=== PATIENT | male | born 1955 | race Asian ===

== ENCOUNTER 2019-02-23 07:08 | Day surgery (SDC) | payer OTHER ==
[~2019-02-23] VITALS: Ht 160 cm; Wt 63.9 kg
[~2019-02-23 07:08] MED LIST: SODIUM CHLORIDE 0.9% 1,000 ML IV ONE; SODIUM CHLORIDE 0.9% 1,000 ML ONE
[2019-02-23] MEDS ORDERED: ALBUTEROL SULFATE 2.5 MG/0.5 ML NEB SOLUTION NEB ONE (07:09)
[2019-02-23] MEDS ORDERED: LIDOCAINE 2% 30 ML JELLY TP ONE (07:09)
[2019-02-23] MEDS ORDERED: BENZOCAINE 20% 50 MCG/SPRAY 57 GM TP ONE (07:09)
[2019-02-23] MEDS ORDERED: MIDAZOLAM HCL 2 MG/2 ML VIAL ONE (07:10)
[2019-02-23] MEDS ORDERED: FentaNYL CITRATE-PF 100 MCG/2 ML VIAL ONE (07:10)
[2019-02-23] MEDS ORDERED: ENTE1TAB2 PO (07:55)
[2019-02-23] MEDS ORDERED: MethylPREDNISolone SOD SUCC 125 MG/2 ML VIAL IVP ONE (09:00)
[2019-02-23] MEDS ORDERED: MethylPREDNISolone SOD SUCC 125 MG/2 ML VIAL ONE (09:32)
[2019-02-23] MEDS ORDERED: OXYGEN THERAPY IH SCH (20:00)
== END 2019-02-23 11:00 | disposition home or self-care (01) ==
LOC: SURGERY 07:08
PROVIDERS: ATTEND Internal Medicine Critical Care Medicine
DX: R05 Cough (principal); R91.1 Solitary pulmonary nodule; J34.89 Other specified disorders of nose and nasal sinuses; J98.8 Other specified respiratory disorders; B37.0 Candidal stomatitis; J38.4 Edema of larynx; R19.09 Other intra-abdominal and pelvic swelling, mass and lump
CPT/HCPCS: 31623; 31624; 71045; 87015; 87070; 87101; 87205; 87206; 87220; 88184; 88185; J2250; J2930; J3010; J7030; 88108; 88312